=== PATIENT | female | born 1980 | race Caucasian/White ===

== ENCOUNTER 2022-03-23 07:20 | Emergency (ER) | payer OTHER, SELFPAY ==
[2022-03-23] VITALS (7 sets, daily range): BP systolic 101–145; BP diastolic 70–103; PULSE 108–120; RESP 14–35; TEMP 36.4–36.6; O2SAT 96–100
[2022-03-23 08:54] LABS: Basophils Percent Auto 0.1 % (0.2-1.2); Hematocrit 46.4 % (37.0-47.0); Immature Granulocyte Absolute 0.09 K/mm3 (0.00-0.031); Immature Granulocyte Percent A 0.5 % (0-0.5); Lymphocytes Absolute Auto 1.82 K/mm3 (0.9-3.2); Lymphocytes Percent Auto 10.1 % (18.3-44.2); Mean Corpuscular HGB Conc 34.5 g/dl (32-36); Mean Corpuscular Hemoglobin 30.9 pg (26-34); Mean Corpuscular Volume 89.6 fl (80-100); Mean Platelet Volume 9.2 fl (7.4-10.4); Monocytes Absolute Auto 0.6 K/mm3 (0.1-0.6); Monocytes Percent Auto 3.4 % (2.6-8.5); Neutrophils Absolute Auto 15.5 K/mm3 (1.3-6.7); Neutrophils Percent Auto 85.9 % (45.5-73.1); Platelet Count Result 374 k/mm3 (150-375); Red Blood Count 5.18 M/mm3 (4.2-5.4); Red Cell Distribution Width 12.3 % (11.5-14.5)
[2022-03-23] MEDS: ONDANSETRON INJ 4 MG/2 ML VIAL IV PUSH (08:54)
--- NOTE | 2022-03-23 08:59 | ED.GENADULT ---
HPI - General Adult General Chief complaint: Nausea/Vomiting/Diarrhea Stated complaint: n/v Time Seen by Provider: 03/23/22 08:39 History of Present Illness HPI narrative: 41-year-old female presented to the emergency department for evaluation of nausea and vomiting. Patient states that she did just start Wegovy yesterday. This is a new medication for her. Patient was taking it for weight loss not for diabetes. Patient states she ate the medication after dinner and has since had multiple hours of nausea and vomiting. Patient states she does have sore throat from the emesis but denies any abdominal pain with this. Patient denies any chest pain or shortness of breath. Related Data Allergies Allergy/AdvReac Type Severity Reaction Status Date / Time No Known Allergies Allergy Unverified 11/26/16 16:02 Review of Systems Review of Systems: CONSTITUTIONAL: Denies fever, chills, or sweats. EYES: Denies visual changes, redness, or discharge. ENT: Denies rhinorrhea, congestion, sore throat, or otalgia. CARDIOVASCULAR: Denies chest pain, palpitations, or edema. RESPIRATORY: Denies cough or dyspnea. GASTROINTESTINAL: See HPI GENITOURINARY: Denies dysuria or hematuria. SKIN: Denies rash or itching. MUSCULOSKELETAL: Denies back pain, joint pain, or myalgia. NEUROLOGIC: Denies headache, numbness, or weakness. [facility] Family History Family History (Updated 12/05/15 @ 13:43 by DOCTOR UNKNOWN) Mother Depression Family history of seizure disorder Social History Social History Smoking status: Never smoker Alcohol intake: never Exam Narrative: APPEARANCE: Well appearing, no pain, no distress, well-nourished. HEAD: normocephalic, atraumatic. EYES: PERRLA/EOMI, conjunctivae clear. NOSE: Normal no drainage EARS:TMS clear with good light reflex. RESPIRATORY: Airway patent, respirations nonlabored. Clear to auscultation bilaterally, no rales, rhonchi, wheezing. CARDIOVASCULAR: Regular rate and rhythm without murmurs rubs or gallops. ABDOMINAL: Soft, nontender, nondistended, normal bowel sounds MUSCULOSKELETAL: Moves all extremities. Strength/ROM intact, No edema, No calf tenderness. NEURO: Alert. Cranial nerves II through XII intact. Grossly intact SKIN: Warm, dry. Normal Color Course Course Emergency Course: Patient does feel significant improved with rehydration. Patient is afebrile with a leukocytosis of 18,000. Patient continues to remain pain-free. Patient's electrolytes are within normal limits. Patient did have ketones but no evidence of urinary tract infection. Patient reports he does feel improved and is tolerating p.o. Patient was advised to follow a clear liquid diet. Patient will be provided medications for nausea control. Reexamination patient continues to have a soft nontender nonsurgical abdomen. Elevated leukocytosis may be reactive. Patient's ketones were elevated but patient was treated with IV fluids. Vital Signs Vital signs: Vital Signs Temperature 97.9 F 03/23/22 07:22 Pulse Rate 120 H 03/23/22 07:22 Respiratory Rate 18 03/23/22 07:22 Blood Pressure 145/103 H 03/23/22 07:22 Pulse Oximetry 96 03/23/22 07:22 Oxygen Delivery Room Air 03/23/22 07:22 Temperature 97.6 F 03/23/22 08:36 Pulse Rate 117 H 03/23/22 10:17 Respiratory Rate 24 H 03/23/22 10:17 Blood Pressure 120/92 H 03/23/22 10:16 Pulse Oximetry 97 03/23/22 10:16 Oxygen Delivery Room Air 03/23/22 07:22 Medical Decision Making Vital Signs Vital Signs: Vital Signs Temperature 97.9 F 03/23/22 07:22 Pulse Rate 120 H 03/23/22 07:22 Respiratory Rate 18 03/23/22 07:22 Blood Pressure 145/103 H 03/23/22 07:22 Pulse Oximetry 96 03/23/22 07:22 Oxygen Delivery Room Air 03/23/22 07:22 Temperature 97.6 F 03/23/22 08:36 Pulse Rate 117 H 03/23/22 10:17 Respiratory Rate 24 H 03/23/22 10:17 Blood Pressure 120/92 H 03/23/22 10:16 Pulse Oximetry 97 03/23/22 10:16 Oxygen
[2022-03-23 09:07] LABS: Alanine Aminotransferase 29 U/L (6-35); Albumin Level 4.6 g/dL (3.5-5.1); Alkaline Phosphatase 92 U/L (38-126); Anion Gap 11 mmol/L (8-16); Aspartate Amino Transferase 27 U/L (14-36); Bilirubin,Total 0.8 mg/dL (0.2-1.3); Blood Urea Nitrogen 14 mg/dL (7-17); Calcium 9.3 mg/dL (8.4-10.2); Carbon Dioxide 23 mmol/L (22-30); Chloride 103 mmol/L (98-107); Estimated CRCL calculation 151 ml/min; Estimated Glomerular Filt Rate > 60; Glucose 99 mg/dL (65-110); Lipase 52 U/L (23-300); Potassium 3.7 mmol/L (3.4-5.0); Sodium 137 mmol/L (137-145)
[2022-03-23 10:31] LABS: Appearance Urine Clear (Clear); Bilirubin Urine Negative (Negative); Blood Urine Trace-lysed (Negative); Color Urine Yellow (Yellow); Glucose Urine UA Negative (Negative); Ketones Urine 4+ mg/dL (Negative); Leukocyte Esterase Ur Negative LEU/UL (Negative); Nitrate Urine Negative (Negative); Protein Urine Negative (Negative); Urobilinogen Urine 0.2 mg/dL (<2.0); pH Urine 5.5 (5.0-9.0)
[2022-03-23 10:40] LABS: Mucus Urine Rare /lpf; RBC Urine 0-2 /hpf (0-2); Squamous Epithelial Cell Urine Moderate /hpf (Few)
[2022-03-23 11:06] LABS: Add Urine Microscopic? YES
--- NOTE | 2022-03-23 11:21 | PC.NURSE ---
Patient report received from Cat, RN. All questions answered and care of patient assumed.
== END 2022-03-23 11:46 | disposition home or self-care (01) ==
PROVIDERS: Emergency Provider Emergency Medicine; PCP Family Medicine
DX: R11.2 Nausea with vomiting, unspecified (principal); T50.995A Adverse effect of other drugs, medicaments and biological substances, initial encounter
CPT/HCPCS: 36415; 80053; 81001; 81025; 83690; 85025; 96374; 99284; J2405

== ENCOUNTER 2023-06-06 07:17 | Outpatient (CLI) | payer OTHER, SELFPAY ==
--- NOTE | ~2023-06-06 | MM_ITS ---
EXAMINATION: MM screening [facility] w [facility]rent HISTORY: Screening mammogram TECHNIQUE: Craniocaudal and mediolateral oblique 3-D tomosynthesis images were obtained and synthetic 2-D images were generated. CAD analysis was submitted and interpreted. COMPARISON: No prior mammogram is available for comparison at this institution. BREAST PARENCHYMAL COMPOSITION: The breasts are heterogeneously dense, which may obscure small masses . FINDINGS: There is no evidence of suspicious mass, calcification, or architectural distortion to sugg est malignancy in either breast. IMPRESSION: 1. No mammographic evidence of malignancy. 2. Recommend routine screening mammography in one year. BI-RADS Category 1: Negative Reviewed, dictated and finalized at location A.
== END 2023-06-06 07:18 | disposition home or self-care (01) ==
LOC: CHSIMG 07:20
PROVIDERS: Visit Provider Obstetrics & Gynecology
DX: Z12.31 Encounter for screening mammogram for malignant neoplasm of breast (principal)
CPT/HCPCS: 77063; 77067